=== PATIENT | female | born 1960 | race Caucasian/White ===

== ENCOUNTER 2017-07-12 12:21 | Observation (INO) ==
[2017-07-12] MEDS ORDERED: Naloxone 0.4 MG/ML INJ IVP PRN (14:19)
[2017-07-12] MEDS ORDERED: Nitroglycerin 0.4 MG TAB.SUBL SL PRN (14:24)
--- NOTE | 2017-07-12 14:30 | Internal Med History&Physical ---
Date of Encounter: 07/12/17 Time of Encounter: 14:27 Internal Medicine - H&P: HPI Chief complaint: chest pain Admitted From: Hospital to Hospital Transfer Plans for Post Hospital Care: Home History of present illness: 56/F PCP: Dr Reagan from [facility]. Plastic Maker : Was from [facility]. But now prefers to switch to this hospital. Brief PMH: Hypertension, coronary artery disease, stent placed 3 years back in [facility] in [facility]. History of present medical illness: Patient complains that she started having the chest pain 8:45 AM this morning when she was still in the bed. The pain is located in left precordial region. The pain has radiation to the left upper extremity as well as to the jaw. Patient felt occasionally nauseous. Patient claims that she had a similar pain when she had a heart attack 3 years back. This was the reason patient decided to go to the emergency room at [facility]. Patient denies shortness of breath, vomiting, abdominal pain, dizziness or diarrhea. Course in the emergency room at [facility]: Patient was evaluated in the emergency department at [facility]. Basic labs were drawn. First set of troponin was negative. EKG did not show any hyperacute ST-T changes. From [facility] emergency room the case was discussed with the hospitalist in this hospital for possible transfer. Reason for transfer: Chest pain in a patient who has previous coronary artery disease and previous stents in the coronary artery. Past Med Surg Social Fam HX - Past Medical History Medical history: hyperlipidemia, hypertension, myocardial infarction Psychiatric history: anxiety - Past Surgical History Surgical History: angioplasty/stent, cholecystectomy - Social History Smoking Status: Current every day smoker Alcohol use: none Drug use: none - Family History Mother Hx Family Cardiac Disorders: Yes (enlarged heart, stroke, NV) Sister Twin of Family Member: Yes, Fraternal Hx Family Cardiac Disorders: Yes (stroke) Internal Medicine - H&P: Meds Aspirin [Lo-Dose Aspirin EC] 81 mg PO 07/12/17 [History] Atorvastatin [Lipitor] 20 mg PO HS 07/12/17 [History] Cyclobenzaprine [Flexeril] 10 mg PO TID 07/12/17 [History] Lisinopril [Zestril] 10 mg PO DAILY 07/12/17 [History] Venlafaxine [Effexor] 75 mg PO BID 07/12/17 [History] 3 Allergy/AdvReac Type Severity Reaction Status Date / Time No Known Allergies Allergy Verified 07/12/17 09:52 All Systems PM: A 10-system review of systems was performed and is negative for pertinent findings except as documented above in the HPI. - Constitutional Constitutional: no chills, no fever(s), no night sweats - EENT Eyes: no change in vision, no discharge, no pain, no photophobia Ears: no ear discharge, no ear pain, no tinnitus Nose, mouth and throat: no dysphagia, no nasal discharge, no neck pain, no sore throat - Cardiovascular Cardiovascular ROS IM: chest pain, lightheadedness, palpitations, no diaphoresis , no dyspnea, no syncope - Respiratory Respiratory: no cough, no dyspnea, no wheezing, no excessive phlegm production - Gastrointestinal Gastrointestinal: no abdominal pain, no diarrhea, no hematemesis, no hematochezia, no melena, no nausea, no vomiting - Genitourinary Genitourinary: no change in urinary stream, no dysuria, no flank pain, no hematuria - Musculoskeletal Musculoskeletal ROS IM: no numbness, no tingling - Integumentary Integumentary IM: no rash, no unusual bruising - Neurological Neurological ROS: no confusion, no convulsions, no focal weakness, no numbness, no tingling, no tremor(s) - Hematologic/Lymphatic Hematologic/Lymphatic: no easy bruising - Head Head exam: Present: atraumatic, normocephalic - Eye Eye exam: Present: PERRL, conjuntiva pink, sclera anicteric Pupils: Present: PERRL - Neck Neck exam general surgery: Present: supple, trachea midline. Absent: lymphadenopathy - Respiratory Respiratory exam: Present: CTAB. Absent: accessory muscle use, rales, rhonchi, wheezes - Cardiovascular Cardiovascular exam: Present: RRR, +S1, +S2. Absent: diastolic murmur, gallop, rubs, systolic murmur - GI/Abdominal GI/Abdominal exam: Present: normal bowel sounds, soft, no peritoneal signs. Absent: distended, tenderness - Extremities Exam Extremities exam: Present: warm, radial pulses palpable and symmetrical. Absent : calf tenderness, cyanotic, pedal edema - Neurological Exam Neurological exam: Present: CN II-XII intact, oriented X3, no focal deficits. Absent: pronater drift, facial droop, speech deficit - Skin Skin exam: Present: dry, intact Internal Med - H&P Results - Labs Labs: reviewed - EKG Data -: EKG Interpreted by Myself - EKG Data EKG comments: 07/12/17 14:32 possible P mitral. - Assessment and plan (1) Chest pain Current Visit: Yes Status: Acute Assessment and plan: 56/female Admitted with chest pain to [facility]. Evaluated in view of previous coronary artery disease and previous stent at [facility]. CITLALLI score: 4. Transferred to the hospital for further evaluation/management. Assessment: Chest pain to rule out NV in a patient who has a previous coronary artery disease/stenting. Plan: Admit as an observation. Full code. Cardiac diet now. Nothing by mouth from midnight. Telemetry. Cycle troponin. Basic labs tomorrow morning including lipid panel. Aspirin 81 mg./Lipitor/lisinopril: Resume home medication. Hold cyclobenzaprine for now which is a home medication. We will give 1 dose of metoprolol 12.5 mg in anticipation of possible stress test tomorrow. Echocardiogram: Since patient preferred to move her cardiology care to this hospital. EKG: P Mitral We will get records from [facility]. Comment: I examined this patient in room #3B 14 along with GEMINI Sofia Plan of care explained to the patient at length. Patient verbalized understanding. Qualifiers: Chest pain type: precordial pain Qualified Code(s): R07.2 - Precordial pain (2) CAD (coronary artery disease) Current Visit: Yes Status: Acute Assessment and plan: Patient has previous coronary artery disease. Resume home medication except cyclobenzaprine. Will get records from [facility]. Qualifiers: Coronary Disease-Associated Artery/Lesion type: [place] artery [place] vs. transplanted heart: [place] heart Associated angina: with stable angina Qualified Code(s): I25.118 - Atherosclerotic heart disease of [place] coronary artery with other forms of angina pectoris (3) Hypertension Current Visit: Yes Status: Acute Assessment and plan: At this point blood pressure is very well-controlled. We will resume home medication. Qualifiers: Hypertension type: essential hypertension Qualified Code(s): I10 - Essential (primary) hypertension (4) Smoker Current Visit: Yes Status: Acute Assessment and plan: Patient is active smoker. Patient smokes around one pack a day. Extensive smoking cessation counseling provided. patient claims that she will think about smoking cessation. (5) DVT prophylaxis Current Visit: Yes Status: Acute Assessment and plan: Heparin Medical decision making: This patient has a moderate to severe risk of worsening in spite of being on appropriate care/medication due to the underlying complex comorbid conditions. - Time Spent With Patient Total time spent is greater than 50% in coordination of care (as documented) at patient's floor/unit and/or counseling patient:
[2017-07-12] MEDS: *HR* Heparin 5,000 UNIT/ML VIAL SQ SCH (22:32)
[2017-07-13 02:18] LABS: Hemoglobin 11.3 g/dL (11.5-15.4); Immature Granulocytes % 0.2 % (0-4)
[2017-07-13 02:20] LABS: Basophils % 0.2 %; Eosinophils # 0.1 K/mcL (0.0-0.6); Eosinophils % 2.3 %; Hematocrit 33.1 % (35.3-44.9); Immature Platelets 5.1 % (1.1-6.1); Lymphocytes # 1.7 K/mcL (0.6-4.6); Mean Corpuscular HGB Conc 34.1 g/dL (31.6-35.5); Mean Corpuscular Hemoglobin 30.9 pg (28.0-33.3); Mean Corpuscular Volume 90.4 fL (83.0-100.0); Mean Platelet Volume 11.6 fL (9.4-12.4); Monocytes # 0.4 K/mcL (0.0-1.3); Monocytes % 9.3 %; Neutrophils # 2.2 K/mcL (1.6-8.9); Red Blood Count 3.66 M/mcL (3.82-4.97)
[2017-07-13 02:24] LABS: Prothrombin Time 10.8 Seconds (9.4-12.1)
[2017-07-13 02:27] LABS: Activated Partial Thrombo Time 34.7 Seconds (26.0-36.0)
[2017-07-13 02:31] LABS: Platelet Count 99 K/mcL (140-400)
[2017-07-13 02:36] LABS: Alanine Aminotransferase 11 Units/L (7-52); Albumin 3.5 g/dL (3.5-5.7); Albumin/Globulin Ratio 1.4 (1.1-2.2); Alkaline Phosphatase 110 Units/L (34-104); Aspartate Amino Transferase 12 Units/L (13-39); BUN/Creatinine Ratio 25 (6-26); Bilirubin,Total 0.3 mg/dL (0.3-1.0); Blood Urea Nitrogen 19 mg/dL (6-20); Calcium 8.8 mg/dL (8.6-10.3); Carbon Dioxide 23 mEq/L (23-29); Chloride 109 mEq/L (98-107); Chol/HDL Ratio 4.1 (0-4.9); Cholesterol 91 mg/dL (< 200); Globulin 2.5 g/dL (2.4-3.5); Glucose 98 mg/dL (70-105); HDL Cholesterol 22 mg/dL (40-59); LDL Cholesterol,Calculated 44 mg/dL (0-99); Magnesium 1.7 mg/dL (1.6-2.6); Osmolality,Calculated 288 (280-300); Potassium 3.9 mEq/L (3.5-5.1); Sodium 138 mEq/L (136-145); Triglycerides 123 mg/dL (< 150); eGFR For African Americans > 60 (> 60); eGFR For Non-African Americans > 60 (> 60)
[2017-07-13] MEDS: *HR* Heparin 5,000 UNIT/ML VIAL SQ SCH ×3 (05:50→22:00)
--- NOTE | 2017-07-13 09:30 | Internal Med Progress Note ---
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 Stent placement MAXX proximal circumflex Resume home medication except cyclobenzaprine. Records receieved fro [place] and reviewed Qualifiers: Coronary Disease-Associated Artery/Lesion type: [place] artery [place] vs. transplanted heart: ely [place] heart Associated angina: with stable angina Qualified Code(s): I25.118 - Atherosclerotic heart disease of [place] coronary artery with other forms of angina pectoris (3) Hypertension Current Visit: Yes Status: Acute Assessment and plan: BP stable cont home medications . Qualifiers: Hypertension type: essential hypertension Qualified Code(s): I10 - Essential (primary) hypertension (4) Smoker Current Visit: Yes Status: Acute Assessment and plan: Patient is active smoker. Patient smokes around one pack a day. Encourage patient to stop smoking (5) DVT prophylaxis Current Visit: Yes Status: Acute Assessment and plan: Heparin subcutanous - Time Spent With Patient Total time spent is greater than 50% in coordination of care (as documented) at patient's floor/unit and/or counseling patient: - Subjective Interval history: Patient is new to me I did review records. I examined the patient at bedside, She denies any CP or SOB at this time. Maintain NPO, We will perform a cardiac stress test this AM - Constitutional Vitals: Temp Pulse Resp BP Pulse Ox 98 F 83 16 110/73 96 07/13/17 06:34 07/13/17 06:34 07/13/17 06:34 07/13/17 06:34 07/13/17 06:34 General appearance: Present: A&O X 3 - Head Head exam: Present: atraumatic, normocephalic - Eye Eye exam: Present: PERRL, conjuntiva pink, sclera anicteric Pupils: Present: PERRL - Neck Neck exam general surgery: Present: supple, trachea midline. Absent: lymphadenopathy - Respiratory Respiratory exam: Present: CTAB. Absent: accessory muscle use, rales, rhonchi, wheezes - Cardiovascular Cardiovascular exam: Present: RRR, +S1, +S2. Absent: diastolic murmur, gallop, rubs, systolic murmur - GI/Abdominal GI/Abdominal exam: Present: normal bowel sounds, soft, no peritoneal signs. Absent: distended, tenderness - Extremities Exam Extremities exam: Present: warm, radial pulses palpable and symmetrical. Absent : calf tenderness, cyanotic, pedal edema - Neurological Exam Neurological exam: Present: CN II-XII intact, oriented X3, no focal deficits. Absent: pronater drift, facial droop, speech deficit - Skin Skin exam: Present: dry, intact Internal Medicine: Result - Labs CBC & Chem 7: 07/13/17 01:49 07/13/17 01:49 Labs: Short CBC 07/13/17 Range/Units 01:49 WBC 4.4 (4.3-11.1) K/mcL Hgb 11.3 L D (11.5-15.4) g/dL Hct 33.1 L (35.3-44.9) % Plt Count 99 L (140-400) K/mcL Neutrophils # 2.2 (1.6-8.9) K/mcL BMP 07/13/17 01:49 Sodium 138 Potassium 3.9 Chloride 109 H Carbon Dioxide 23 BUN 19 Creatinine 0.77 Glucose 98 Calcium 8.8 Cardiac Enzymes 07/12/17 07/12/17 07/13/17 Range/Units 14:41 20:00 01:49 Troponin I < 0.03 < 0.03 < 0.03 (< 0.04) ng/mL Liver Function 07/13/17 Range/Units 01:49 Total Bilirubin 0.3 (0.3-1.0) mg/dL AST 12 L (13-39) Units/L ALT 11 (7-52) Units/L Alkaline Phosphatase 110 H (34-104) Units/L Albumin 3.5 (3.5-5.7) g/dL - ABG Interpretation ABG results: PT/INR, D-dimer PT 10.8 Seconds (9.4-12.1) 07/13/17 01:49 Consult Discharge Plan - Plan Referrals: Merary Ramirez, SPLITTING MACHINE OPERATOR HELPER [Primary Care Provider] -
[2017-07-13] MEDS ORDERED: Regadenoson 0.4 MG/5 ML SYRINGE IVP ONE (10:54)
[2017-07-13] MEDS: Aspirin Enteric Coated 81 MG Tablet PO SCH (13:29)
[2017-07-14] MEDS: *HR* Heparin 5,000 UNIT/ML VIAL SQ SCH (06:52)
[2017-07-14 07:10] LABS: Basophils % 0.5 %; Eosinophils # 0.1 K/mcL (0.0-0.6); Eosinophils % 1.4 %; Hematocrit 34.2 % (35.3-44.9); Hemoglobin 11.8 g/dL (11.5-15.4); Immature Granulocytes % 0.2 % (0-4); Lymphocytes # 1.6 K/mcL (0.6-4.6); Lymphocytes % 37.2 %; Mean Corpuscular HGB Conc 34.5 g/dL (31.6-35.5); Mean Corpuscular Hemoglobin 30.7 pg (28.0-33.3); Mean Corpuscular Volume 89.1 fL (83.0-100.0); Mean Platelet Volume 12.1 fL (9.4-12.4); Monocytes # 0.4 K/mcL (0.0-1.3); Monocytes % 10.3 %; Neutrophils # 2.1 K/mcL (1.6-8.9); Platelet Count 114 K/mcL (140-400); Red Blood Count 3.84 M/mcL (3.82-4.97); Segmented Neutrophils % 50.4 %
[2017-07-14 07:28] LABS: BUN/Creatinine Ratio 24 (6-26); Blood Urea Nitrogen 17 mg/dL (6-20); Calcium 8.8 mg/dL (8.6-10.3); Carbon Dioxide 27 mEq/L (23-29); Chloride 107 mEq/L (98-107); Glucose 104 mg/dL (70-105); Osmolality,Calculated 288 (280-300); Sodium 138 mEq/L (136-145); eGFR For African Americans > 60 (> 60); eGFR For Non-African Americans > 60 (> 60)
[2017-07-14] MEDS: Aspirin Enteric Coated 81 MG Tablet PO SCH (08:50)
--- NOTE | 2017-07-14 09:06 | Discharge Summary ---
Orders not resulted at time of discharge: Pending orders 07/13/17 09:27 NM ammy perf SPECT multi [NM] Routine Date of Encounter: 07/14/17 Time of Encounter: 09:04 - Discharge Diagnosis (1) Chest pain Priority: Primary Status: Acute Comments: Stress test completed Impression: Perfusion imaging was negative for ischemia or infarct. Pharmacologic stress ECG is negative for ischemia at level of heart rate achieved. Will have patient follow up with cardiology as outpatient cont with home medications Qualifiers: Chest pain type: precordial pain Qualified Code(s): R07.2 - Precordial pain (2) CAD (coronary artery disease) Priority: Secondary Status: Acute Comments: cont with home medication follow up with cardiology Qualifiers: Coronary Disease-Associated Artery/Lesion type: [place] artery [place] vs. transplanted heart: [place] heart Associated angina: with stable angina Qualified Code(s): I25.118 - Atherosclerotic heart disease of [place] coronary artery with other forms of angina pectoris (3) Hypertension Priority: Secondary Status: Acute Comments: cont with home meds Qualifiers: Hypertension type: essential hypertension Qualified Code(s): I10 - Essential (primary) hypertension (4) Smoker Priority: Secondary Status: Acute Comments: will send home with nicotine patch Hospital course: Ms. Marsh is a 56 year old female past medical history of hyperlipidemia hypertension [place] in the past stent placed approximately 3 years ago [facility]. According to the patient she has been experiencing chest pain that radiated to her jaw with nausea that started yesterday while at rest. She claims she had similar pain when she had a heart attack 3 years ago. She presented to the [facility] ER for evaluation she was transferred to [facility] for further medical workup. Troponins were negative EKG with no ST-T wave abnormalities. Patient has been chest pain-free since arriving to the hospital. She underwent a stress test which was negative for ischemia or infarct. Patient currently continues to smoke. Advised patient to stop smoking. Patient did agree to a nicotine patch. Patient's lab work as well as vital signs have been stable. I advised patient to follow-up with her primary care physician since this provider knows her best as well as cardiology as outpatient. Patient verbalized understanding. Patient is to continue with home medications. Patient verbalized understanding she is ready for discharge Discharge discussed with: patient - Time Spent with Patient Total time spent providing and/or coordinating discharge services: - Discharge Medications Prescriptions: Nicotine Patch [Nicoderm] 14 mg TD DAILY 28 Days #2 patch.[id number] Home Medications: Aspirin 81 mg PO DAILY 07/12/17 [History] Atorvastatin [Lipitor] 40 mg PO HS 07/12/17 [History] Cyclobenzaprine [Flexeril] 5 - 10 mg PO TID PRN 07/12/17 [History] Lisinopril [Zestril] 20 mg PO DAILY 07/12/17 [History] Montelukast [Singulair] 10 mg PO DAILY PRN 07/12/17 [History] Omeprazole [PriLOSEC] 20 mg PO DAILY PRN 07/12/17 [History] Valacyclovir HCl [Valtrex] 1,000 mg PO DAILY PRN 07/12/17 [History] Venlafaxine XR (24 HR) [Effexor XR] 75 mg PO DAILY 07/12/17 [History] Nicotine Patch [Nicoderm] 14 mg TD DAILY 28 Days #2 patch.td24 07/14/17 [Rx] Allergies/Adverse Reactions: 3 Allergy/AdvReac Type Severity Reaction Status Date / Time No Known Allergies Allergy Verified 07/12/17 09:52 Date of admission: 07/12/17 13:38 Primary care physician: Merary Ramirez CNP Discharging clinician: Pam Lopez Anticipated date of discharge: 07/14/17 - Constitutional Vitals: Temp Pulse Resp BP Pulse Ox 98.0 F 77 18 109/72 96 07/14/17 06:37 07/14/17 06:37 07/14/17 06:37 07/14/17 06:37 07/14/17 06:37 General appearance: Present: A&O X 3 - Head Head exam: Present: atraumatic, normocephalic - Eye Eye exam: Present: PERRL, conjuntiva pink, sclera anicteric Pupils: Present: PERRL - Neck Neck exam general surgery: Present: supple, trachea midline. Absent: lymphadenopathy - Respiratory Respiratory exam: Present: CTAB. Absent: accessory muscle use, rales, rhonchi, wheezes - Cardiovascular Cardiovascular exam: Present: RRR, +S1, +S2. Absent: diastolic murmur, gallop, rubs, systolic murmur - GI/Abdominal GI/Abdominal exam: Present: normal bowel sounds, soft, no peritoneal signs. Absent: distended, tenderness - Extremities Exam Extremities exam: Present: warm, radial pulses palpable and symmetrical. Absent : calf tenderness, cyanotic, pedal edema - Neurological Exam Neurological exam: Present: CN II-XII intact, oriented X3, no focal deficits. Absent: pronater drift, facial droop, speech deficit - Skin Skin exam: Present: dry, intact - Patient Status Disposition: Home, Self-Care Condition: Good Functional capacity at discharge: independent ambulation Overall status at discharge: patient is back to baseline - Discharge Instructions Instructions: Chest Pain (DC), Chronic Hypertension (DC) Follow Up With: Merary Ramirez CNP [Primary Care Provider] - 07/25/17 10:30 am Herminio Clark MD [Partnered Physician] - ([facility] will be calling you with an appointment. Thank you!) - Diet and Activity Activity: increase activity as tolerated Diet: low fat, low cholesterol, low salt diet
[2017-07-14 10:44] VITALS: BP 116/78
== END 2017-07-14 10:51 | disposition home or self-care (01) ==
LOC: 3BNU
PROVIDERS: ADMIT Internal Medicine; ATTEND Registered Nurse